=== PATIENT | male | born 1985 ===

== ENCOUNTER → 2023-12-12 | Outpatient (CLI) | payer OTHER | END | disposition home or self-care (01) | LOC: XYW 07:54 | PROVIDERS: ATTEND Internal Medicine | DX: I10 Essential (primary) hypertension (principal) | CPT/HCPCS: 93306 ==

== ENCOUNTER → 2025-02-14 | Outpatient (CLI) | payer OTHER ==
[2025-02-14 08:10] LABS: Alanine Aminotransferase 26 U/L (7-40); Alkaline Phosphatase 78 U/L (46-116); Anion Gap 10 (5-15); BUN/Creatinine Ratio 12.9 (10.0-20.0); Blood Urea Nitrogen 11 mg/dL (9-23); Calcium 10.0 mg/dL (8.7-10.4); Carbon Dioxide 23 mmol/L (20-31); Chloride 107 mmol/L (98-107); Potassium 4.8 mmol/L (3.5-5.1); Sodium 140 mmol/L (136-145); Triglycerides 94 mg/dL (< 150)
[2025-02-14 08:11] LABS: Total Protein 7.0 g/dL (5.7-8.2)
[2025-02-14 08:12] LABS: Cholesterol 183 mg/dL (< 200)
[2025-02-14 08:13] LABS: Albumin 4.9 g/dL (3.2-4.8); Bilirubin, Total 0.3 mg/dL (0.2-1.0); Glucose 125 mg/dL (74-106); HDL Cholesterol 36 mg/dL (40-59)
[2025-02-14 08:35] LABS: Microalb/Creat Ratio, Urine < 9.00
== END | disposition home or self-care (01) ==
LOC: LAB 06:34
PROVIDERS: ATTEND Internal Medicine
DX: E78.5 Hyperlipidemia, unspecified (principal); R73.03 Prediabetes
CPT/HCPCS: 36415; 80053; 80061; 82043; 82570; 83036